=== PATIENT | female | born 1980 | race African-American/Black ===

== ENCOUNTER → 2016-09-21 | Outpatient (CLI) | payer OTHER ==
[~2016-09-21] VITALS: Ht 171.4 cm; Wt 152.0 kg
[~2016-09-21] MED LIST: 00186-0372-20 IH; ALBUTEROL1.25 MG/3 IH; ATROVENT I0.2 MG/1 M IH; BENLYSTA120 MG IV; CELLCEPT 5500 MG/TAB PO; CYCLOBENZAPRINE5 M1 PO; CYMBALTA 60MG60 MG PO; GLUCOPHAGE500 MG/TAB PO; IBU-6600 MG PO; LEVAQUIN 5500 MG/TA1 PO; MEDROL 4MG DOSPA4 MG PO; MIRENA52 MG IY; MORPHINE 1515 MG/TAB PO; NORCO 325 MG-51 TAB PO; NORCO 325 MG-7.1 TAB PO; NORFLEX 10100 MG/TAB PO; PERCOCET 325 MG1 TA2 PO; PHENTERMINE15 MG PO; PREDNISONE20 MG PO; PRENATAL1 TA1 PO; PROCARDIA XL 6060 MG PO; SENOKOT8.6 MG PO; TYLENOL 325MG325 MG PO; ULTRAM 50MG TAB50 MG PO; VENTOLIN0.09 MG IH; ZITHROMAX 250M250 MG PO; ZOFRAN 4MG T4 MG/TAB PO
[2016-09-21 09:17] VITALS: BP 133/67; PULSE 79
== END ==
LOC: LIGHT 08:50
DX: E16.1 Other hypoglycemia (principal); G47.33 Obstructive sleep apnea (adult) (pediatric); E28.2 Polycystic ovarian syndrome; G89.29 Other chronic pain; E88.81 Metabolic syndrome and other insulin resistance; Z68.43 Body mass index [BMI] 50.0-59.9, adult

== ENCOUNTER → 2016-09-27 | Outpatient (CLI) | payer OTHER | LOC: COL.RAD 08:15 | DX: M51.27 Other intervertebral disc displacement, lumbosacral region (principal) ==

== ENCOUNTER → 2016-10-03 | Outpatient (CLI) | payer OTHER ==
[~2016-10-03] VITALS: Ht 171.4 cm; Wt 153.1 kg
[2016-10-03 13:54] VITALS: BP 135/62; PULSE 82
== END ==
LOC: LIGHT 09:47
DX: Z53.9 Procedure and treatment not carried out, unspecified reason (principal)

== ENCOUNTER → 2016-10-11 | Outpatient (CLI) | payer OTHER ==
[~2016-10-11] VITALS: Ht 172.7 cm; Wt 152.3 kg
[2016-10-11 13:49] VITALS: BP 142/93; PULSE 85
[2016-10-11 15:27] VITALS: BP 147/89; PULSE 84
== END ==
LOC: COL.RAD 13:30
DX: M51.26 Other intervertebral disc displacement, lumbar region (principal); M48.06 Spinal stenosis, lumbar region
CPT/HCPCS: J3301

== ENCOUNTER → 2016-10-11 | Outpatient (CLI) | payer OTHER ==
[~2016-10-11] VITALS: Ht 171.4 cm; Wt 152.4 kg
[2016-10-11 16:22] VITALS: BP 120/80; PULSE 84
== END ==
LOC: LIGHT 14:50
DX: E16.1 Other hypoglycemia (principal); G47.33 Obstructive sleep apnea (adult) (pediatric); E28.2 Polycystic ovarian syndrome; G89.29 Other chronic pain

== ENCOUNTER → 2016-11-10 | Outpatient (CLI) | payer OTHER | LOC: LIGHT 08:53 | DX: Z01.89 Encounter for other specified special examinations (principal) ==

== ENCOUNTER → 2016-11-15 | Outpatient (CLI) | payer OTHER ==
[~2016-11-15] VITALS: Ht 171.4 cm; Wt 151.0 kg
[2016-11-15 14:33] VITALS: BP 144/80; PULSE 80
== END ==
LOC: LIGHT 14:00
DX: E16.1 Other hypoglycemia (principal); G47.33 Obstructive sleep apnea (adult) (pediatric); E28.2 Polycystic ovarian syndrome; G89.29 Other chronic pain; Z68.43 Body mass index [BMI] 50.0-59.9, adult

== ENCOUNTER → 2016-12-27 | Outpatient (CLI) | payer OTHER ==
[~2016-12-27] VITALS: Ht 171.4 cm; Wt 151.0 kg
[2016-12-27 14:18] VITALS: BP 104/78; PULSE 88
== END ==
LOC: LIGHT 14:10
DX: E16.1 Other hypoglycemia (principal); G47.33 Obstructive sleep apnea (adult) (pediatric); E28.2 Polycystic ovarian syndrome; G89.29 Other chronic pain; Z68.43 Body mass index [BMI] 50.0-59.9, adult; Z71.3 Dietary counseling and surveillance

== ENCOUNTER 2017-01-09 15:00 | Outpatient (RCR) | payer OTHER | END 2017-01-12 14:07 | disposition home or self-care (01) | LOC: WSPT 15:00 | DX: M46.92 Unspecified inflammatory spondylopathy, cervical region (principal); M46.96 Unspecified inflammatory spondylopathy, lumbar region ==

== ENCOUNTER → 2017-04-18 | Outpatient (CLI) | payer OTHER ==
[~2017-04-18] VITALS: Ht 171.4 cm; Wt 153.1 kg
[~2017-04-18] MED LIST changes: +ADIPEX-P37.5 MG PO; -PHENTERMINE15 MG PO
[2017-04-18 13:57] VITALS: BP 128/74; PULSE 72
== END ==
LOC: LIGHT 01-24 15:17
DX: E16.1 Other hypoglycemia (principal); G47.33 Obstructive sleep apnea (adult) (pediatric); E28.2 Polycystic ovarian syndrome; G89.29 Other chronic pain; Z68.43 Body mass index [BMI] 50.0-59.9, adult; Z71.3 Dietary counseling and surveillance

== ENCOUNTER → 2017-05-16 | Outpatient (CLI) | payer OTHER ==
[~2017-05-16] VITALS: Ht 171.4 cm; Wt 152.6 kg
[2017-05-16 14:12] VITALS: BP 130/90; PULSE 72
== END ==
LOC: LIGHT 09:29
DX: E16.1 Other hypoglycemia (principal); G47.33 Obstructive sleep apnea (adult) (pediatric); E28.2 Polycystic ovarian syndrome; G89.29 Other chronic pain; Z68.43 Body mass index [BMI] 50.0-59.9, adult; Z71.3 Dietary counseling and surveillance

== ENCOUNTER → 2017-06-20 | Outpatient (CLI) | payer OTHER ==
[~2017-06-20] VITALS: Ht 171.4 cm; Wt 153.1 kg
[~2017-06-20] MED LIST changes: +MILLIPRED5 MG PO
[2017-06-20 13:59] VITALS: BP 128/78; PULSE 78
== END ==
LOC: LIGHT 13:37
DX: E16.1 Other hypoglycemia (principal); G47.33 Obstructive sleep apnea (adult) (pediatric); E28.2 Polycystic ovarian syndrome; G89.29 Other chronic pain; Z68.43 Body mass index [BMI] 50.0-59.9, adult; Z71.3 Dietary counseling and surveillance
CPT/HCPCS: G0463

== ENCOUNTER → 2017-10-10 | Outpatient (CLI) | payer OTHER ==
[~2017-10-10] VITALS: Ht 171.4 cm; Wt 154.9 kg
[2017-10-10 15:35] VITALS: BP 104/60; PULSE 80
== END ==
LOC: LIGHT 07-25 09:04
DX: E16.1 Other hypoglycemia (principal); G47.33 Obstructive sleep apnea (adult) (pediatric); E28.2 Polycystic ovarian syndrome; G89.29 Other chronic pain; Z68.43 Body mass index [BMI] 50.0-59.9, adult; Z71.3 Dietary counseling and surveillance
CPT/HCPCS: G0463

== ENCOUNTER → 2017-10-27 | Outpatient (CLI) | payer OTHER | LOC: COL.RAD 13:30 | DX: R59.0 Localized enlarged lymph nodes (principal) ==

== ENCOUNTER → 2017-11-14 | Outpatient (CLI) | payer OTHER ==
[~2017-11-14] VITALS: Ht 171.4 cm; Wt 155.6 kg
[2017-11-14 14:54] VITALS: BP 130/62; PULSE 80
== END ==
LOC: LIGHT 14:37
DX: E16.1 Other hypoglycemia (principal); G47.33 Obstructive sleep apnea (adult) (pediatric); E28.2 Polycystic ovarian syndrome; G89.29 Other chronic pain; Z68.43 Body mass index [BMI] 50.0-59.9, adult; Z71.3 Dietary counseling and surveillance
CPT/HCPCS: G0463

== ENCOUNTER → 2017-12-11 | Outpatient (CLI) | payer OTHER | LOC: BHSO 09:05 | DX: Z01.818 Encounter for other preprocedural examination (principal) ==

== ENCOUNTER → 2018-01-01 | Outpatient (CLI) | payer OTHER ==
[~2018-01-01] VITALS: Ht 171.4 cm; Wt 152.9 kg
[2018-01-01 14:53] VITALS: BP 110/70; PULSE 78
== END ==
LOC: LIGHT 09:26
DX: E88.81 Metabolic syndrome and other insulin resistance (principal); M79.1 Myalgia; E66.9 Obesity, unspecified; Z68.43 Body mass index [BMI] 50.0-59.9, adult; Z71.3 Dietary counseling and surveillance
CPT/HCPCS: G0463

== ENCOUNTER → 2018-02-06 | Outpatient (CLI) | payer OTHER ==
[2018-02-06 09:32] LABS: HEMOGLOBIN 13.5 g/dl (12.5-16.0); MEAN CELL VOLUME 89 fl (80.0-100.0); MEAN CORPUSCULAR HEMOGLOBIN 30 pg (27.0-31.0); MEAN CORPUSCULAR HGB CONC 34 g/dl (33.0-37.0); MEAN PLATELET VOLUME 8.4 fl (7.4-10.4); PLATELET COUNT 359 K/mm3 (130-400); RED BLOOD COUNT 4.51 M/mm3 (4.10-5.30); REDCELL DISTRIBUTION WIDTH-CV 12.6 % (11.5-14.5)
[2018-02-06 09:44] LABS: ALBUMIN 4.1 gm/dL (3.5-5.0); BILIRUBIN,TOTAL 0.4 mg/dL (0.0-1.0); CALCIUM 9.1 mg/dL (8.4-10.2); CREATININE, serum 0.77 mg/dL (0.52-1.25); POTASSIUM 4.1 mmol/L (3.4-5.0); TOTAL PROTEIN 7.9 gm/dL (6.4-8.2)
== END ==
LOC: COL.LAB 08:24
PROVIDERS: Surgery
DX: E66.01 Morbid (severe) obesity due to excess calories (principal); Z98.84 Bariatric surgery status

== ENCOUNTER 2018-08-10 05:50 | Outpatient (CLI) | payer OTHER ==
[2018-08-09 06:50] VITALS: BP 140/82; PULSE 66; TEMP 98
[~2018-08-10] VITALS: Ht 172.7 cm; Wt 175.4 kg
== END 2018-08-10 11:00 | disposition home or self-care (01) ==
LOC: EUO 05:50
DX: E86.0 Dehydration (principal)
CPT/HCPCS: J7030

== ENCOUNTER 2019-03-28 14:15 | Outpatient (RCR) | payer OTHER | END 2019-04-02 | disposition home or self-care (01) | LOC: WSPT | DX: M25.9 Joint disorder, unspecified (principal) ==

== ENCOUNTER 2019-04-11 14:15 | Outpatient (RCR) | payer OTHER | END 2019-06-21 12:53 | disposition home or self-care (01) | LOC: WSPT 14:15 | DX: M25.9 Joint disorder, unspecified (principal); M32.9 Systemic lupus erythematosus, unspecified ==

== ENCOUNTER → 2019-08-15 | Outpatient (CLI) | payer OTHER | LOC: COL.RAD 13:24 | DX: R51 Headache (principal) ==

== ENCOUNTER → 2020-06-26 | Outpatient (CLI) | payer BC | LOC: COL.RAD 08:58 | DX: M50.31 Other cervical disc degeneration, high cervical region (principal); M40.50 Lordosis, unspecified, site unspecified ==

== ENCOUNTER → 2020-07-15 | Outpatient (CLI) | payer BC | LOC: MHCPAIN 09:25 | DX: M47.812 Spondylosis without myelopathy or radiculopathy, cervical region (principal); M54.2 Cervicalgia; M79.2 Neuralgia and neuritis, unspecified; G89.29 Other chronic pain; M79.7 Fibromyalgia | CPT/HCPCS: G0463 ==

== ENCOUNTER 2020-10-26 08:00 | Outpatient (RCR) | payer BC | END 2020-11-11 | disposition still patient (30) | LOC: WSPT | DX: M79.7 Fibromyalgia (principal) ==

== ENCOUNTER 2022-04-07 10:30 | Outpatient (RCR) | payer BC | END 2022-04-11 | disposition home or self-care (01) | LOC: MKS.ESL.PT | DX: M20.11 Hallux valgus (acquired), right foot (principal); Z98.890 Other specified postprocedural states ==

== ENCOUNTER → 2022-07-05 15:25 | Outpatient (RCR) | payer OTHER | LOC: MKS.ESL.PT 05-12 10:00 | DX: M20.11 Hallux valgus (acquired), right foot (principal); Z98.890 Other specified postprocedural states ==

== ENCOUNTER 2023-09-07 09:00 | Outpatient (RCR) | payer OTHER | END 2023-09-10 | disposition home or self-care (01) | LOC: WSPT | DX: M25.511 Pain in right shoulder (principal); G89.29 Other chronic pain ==

== ENCOUNTER → 2023-12-20 | Outpatient (CLI) | payer OTHER | LOC: MC.RAD 12:37 | DX: Z12.31 Encounter for screening mammogram for malignant neoplasm of breast (principal); N63.10 Unspecified lump in the right breast, unspecified quadrant ==

== ENCOUNTER 2024-02-08 15:45 | Outpatient (RCR) | payer OTHER | END 2024-02-10 | disposition home or self-care (01) | LOC: WSPT | DX: M25.562 Pain in left knee (principal); M25.511 Pain in right shoulder ==